=== PATIENT | male | born 1995 | race Caucasian/White ===

== ENCOUNTER 2016-11-08 14:05 | Day surgery (SDC) | payer BC ==
[~2016-11-08] VITALS: Ht 180.3 cm; Wt 92.5 kg
[2016-11-08 14:35] VITALS: BP 146/69; PULSE 91; TEMP 98.3
[2016-11-08] MEDS ORDERED: PRIL40 PO (14:43)
[2016-11-08] MEDS ORDERED: GAVISCON F1 TAB.CHEW PO (14:44)
[2016-11-08 16:10] VITALS: BP 100/61; PULSE 74; TEMP 97.9
[2016-11-08 16:23] VITALS: BP 107/65; PULSE 65
[2016-11-08 16:40] VITALS: BP 108/59; PULSE 64
[2016-11-08 16:55] VITALS: BP 107/68; PULSE 61
== END 2016-11-08 17:20 | disposition home or self-care (01) ==
LOC: SDCO 14:05
DX: K21.0 Gastro-esophageal reflux disease with esophagitis (principal); R19.7 Diarrhea, unspecified; R11.2 Nausea with vomiting, unspecified; R10.13 Epigastric pain
CPT/HCPCS: J2250; J3010